=== PATIENT | male | born 1980 | race African-American/Black ===

== ENCOUNTER 2017-01-05 15:09 | Emergency (ER) | payer OTHER, BC ==
[~2017-01-05] VITALS: Ht 188 cm; Wt 108.9 kg
[2017-01-05] MEDS ORDERED: PROPOFOL 50 ML IV ONE (15:25)
[2017-01-05] MEDS ORDERED: PROPOFOL 20 ML IV ONE (15:30)
[2017-01-05] MEDS ORDERED: NAPR500T PO (16:08)
[2017-01-05] MEDS ORDERED: HYDR-971 PO (16:08)
--- NOTE | 2017-01-05 16:08 | PHYS DOC ---
Adult General Chief Complaint Chief Complaint: left knee injury HPI HPI Patient is a 36 year old male who presents with complaint of left knee injury. The patient states that the injury took place approximately one and a half hours prior to arrival. Patient states that he was bouncing himself on a truck bed when he accidentally lost his balance and fell awkwardly onto his left knee. Patient states that he felt a pop and was unable to walk immediately after landing. Patient was working at the time with a [employer]. Patient is brought to the emergency department for evaluation. Patient rates pain currently is 10 out of 10. Patient denies loss of feeling in his left foot. Patient is concerned that he may have broken his knee. Patient denies any significant past medical history and is not currently on any medications. Patient states that he drank water prior to arrival but hasn't eaten anything since yesterday. Review of Systems Review of Systems Constitutional: Denies fever or chills [] Eyes: Denies change in visual acuity, redness, or eye pain [] HENT: Denies nasal congestion or sore throat [] Respiratory: Denies cough or shortness of breath [] Cardiovascular: Denies chest pain or edema [] GI: Denies abdominal pain, nausea, vomiting, bloody stools or diarrhea [] : Denies dysuria or hematuria [] Musculoskeletal: Left knee injury [] Integument: Denies rash or skin lesions [] Neurologic: Denies headache, focal weakness or sensory changes [] Current Medications Current Medications Current Medications Medications (Trade) Dose Ordered Sig/Rama Start Time Stop Time Status Last Admin Dose Admin Propofol (Diprivan) 20 ml @ 0 mls/hr 1X ONCE 01/05/17 15:30 01/05/17 16:49 DC Allergies Allergies Allergies Coded Allergies Type Severity Reaction Last Updated Verified No Known Drug Allergies 01/05/17 No Physical Exam Physical Exam Constitutional: Alert, afebrile, appears in severe discomfort. [] HENT: Normocephalic, atraumatic, bilateral external ears normal, oropharynx moist, no oral exudates, nose normal. [] Eyes: PERRLA, EOMI, conjunctiva normal, no discharge. [] Neck: Normal range of motion, no tenderness, supple, no stridor. [] Cardiovascular:Heart rate regular rhythm, no murmur [] Lungs & Thorax: Bilateral breath sounds clear to auscultation [] Abdomen: Bowel sounds normal, soft, no tenderness, no masses, no pulsatile masses. [] Skin: Warm, dry, no erythema, no rash. [] Back: No tenderness, no CVA tenderness. [] Extremities: Left knee held in slightly flexed position, left lateral knee deformity present, no cyanosis, no clubbing, range of motion not tested secondary to pain, neurovascularly intact distal to injury. [] Neurologic: Alert and oriented X 3, normal motor function, normal sensory function, no focal deficits noted. [] EKG EKG not performed[] Radiology/Procedures Radiology/Procedures [facility] [address] [place] [address] IMAGING REPORT Signed PATIENT: AYAH OLEARY ACCOUNT: [id number] : 1980 LOCATION: ER AGE: 36 SEX: M EXAM STATUS: PRE ER ORD. PHYSICIAN: MARIELLA LENNON MD REASON: status post patellar reduction PROCEDURE: KNEE LEFT 3V Left knee radiographs History: Status post patellar reduction. Comparison: None. Findings: AP, lateral, and oblique views of the left knee. No acute fracture or dislocation is identified. There may be a small joint effusion. The quadriceps tendon insertional enthesophyte is seen. There may be mild patella jaydon. Impression: 1. No acute fracture identified. 2. Possible small joint effusion. 3. Question mild patella jaydon. DICTATED and SIGNED BY: SIMÓN DOYLE MD DATE: 01/05/17 1606 CC: MARIELLA LENNON MD ~ [] Course & Med Decision Making Course & Med Decision Making Pertinent Labs and Imaging studies reviewed. (See chart for details) Patient's patellar dislocation was reduced as outlined in the procedure note under conscious sedation. Patient's pain has significantly improved at this time. The patient's left knee was placed in a knee immobilizer by the emergency department emissions testing technician. My evaluation post knee immobilizer application showed normal capillary refill in all 5 digits of the left foot, normal dorsalis pedis and posterior tibialis pulses, and normal sensation. Patient provided crutches to assist with ambulation. Patient's workman's comp paperwork was completed in the emergency department. Advised patient to follow-up with Dr. Franks of orthopedic surgery in his office in one week and advised return to emergency department for any worsening symptoms. Patient voiced understanding and in agreement with treatment plan. Dragon Disclaimer Dragon Disclaimer This electronic medical record was generated, in whole or in part, using a voice recognition dictation system. Joint Reduction Procedure Joint Indication: Left patellar dislocation Consent: Consent was obtained. Procedure: The pre-reduction exam showed distal perfusion and neurologic function to be normal.. The patient was placed in the appropriate position. Anesthesia/pain control was achieved conscious sedation with propofol. Reduction of the left patella was performed by hyperextension of the knee joint with medial traction over the lateral aspect of the left patella. Post reduction films were obtained and revealed satisfactory reduction. A post- reduction exam revealed distal perfusion and neurologic function to be normal. The affected area was immobilized with a knee immobilizer. The patient tolerated the procedure well. Complications: none. Procedural Sedation Proc Sed Indication: Left patellar dislocation Consent: I have discussed with the patient and/or the patient manufacturers service representative the indication, alternatives, and the possible risks and /or complications of the planned procedure and the anesthesia methods. The patient and/or patient manufacturers service representative appear to understand and agree to proceed. Pre-Sedation Documentation and Exam: Refer to history of present illness Airway Assessment: normal. Prior History of Anesthesia Complications: none. ASA Classification: 1 Sedation/ Anesthesia Plan: Propofol titrated to effect Medications Used: see nursing notes. Monitoring and Safety: The patient was placed on a cook 3 pastry and vital signs, pulse oximetry and level of consciousness were continuously evaluated throughout the procedure. At 1538 the patient received 100 mg of propofol IV push. The patient was closely monitored until recovery from the medications was complete and the patient had returned to baseline status which was documented at 1550. Respiratory therapy was on standby at all times during the procedure. (The following sections must be completed) Post-Sedation Vital Signs: [EDM.VS] Post-Sedation Exam: Returned to baseline, left patella successfully reduced Complications: none. Departure Departure Impression: Primary Impression: Dislocation of left patella Disposition: HOME, SELF-CARE Condition: IMPROVED Referrals: CHEMO FRANKS MD Patient Instructions: Patellar Dislocation Additional Instructions: Follow-up with Dr. Franks in one week. Return to the emergency department for any worsening symptoms. Scripts Hydrocodone/Apap 5-325 ([place] 5-325 Tablet)1 Each Tablet1-2 Tab PO Q4-6HRS PRN PAIN #15 TAB Prov:MARIELLA LENNON MD 01/05/17 Naproxen (Naprosyn)500 Mg Leqdtg211 Mg PO BID #20 TAB Prov:MARIELLA LENNON MD 01/05/17 Problem Qualifiers Primary Impression: Dislocation of left patella Encounter type: initial encounter Qualified Code: S83.005A - Unspecified dislocation of left patella, initial encounter MARIELLA LENNON MD Jan 05, 2017 16:08
--- NOTE | 2017-01-05 16:11 | RAD ---
Left knee radiographs History: Status post patellar reduction. Comparison: None. Findings: AP, lateral, and oblique views of the left knee. No acute fracture or dislocation is identified. There may be a small joint effusion. The quadriceps tendon insertional enthesophyte is seen. There may be mild patella jaydon. Impression: 1. No acute fracture identified. 2. Possible small joint effusion. 3. Question mild patella jaydon.
[2017-01-05 16:40] VITALS: BP 104/61
== END 2017-01-05 16:50 | disposition home or self-care (01) ==
LOC: ER 15:09
DX: S83.005A Unspecified dislocation of left patella, initial encounter (principal); W01.0XXA Fall on same level from slipping, tripping and stumbling without subsequent striking against object, initial encounter; Y93.89 Activity, other specified; Y92.89 Other specified places as the place of occurrence of the external cause; Y99.8 Other external cause status
CPT/HCPCS: 27560; 73562; 99285-25